=== PATIENT | male | born 1990 | race Caucasian/White ===

== ENCOUNTER → 2022-05-06 | Outpatient (CLI) | payer SELFPAY ==
--- NOTE | 2022-05-06 06:41 | MRI_ITS ---
STUDY: MRI LEFT KNEE REASON FOR EXAM: Anterior left knee pain, instability, twisting injury. TECHNIQUE: Standardized fat and water weighted pulse sequences were obtained in all 3 orthogonal planes. COMPARISON: None. FINDINGS: Normal medial meniscus. Normal hyaline cartilage of the medial femorotibial compartment. Normal medial femoral condyle and tibial plateau. Normal medial collateral ligamentous complex (MCL). Normal distal semimembranosus, gracilis and semitendinosus tendons. Normal lateral meniscus. There is an osteochondral lesion of the lateral femoral condyle (proton-density sagittal image 29; proton-density coronal images 11-13) measuring approximately 0.9 x 0.6 cm (AP x transverse) with cystic change of the fragment (T2 sagittal image 17). There is a bone contusion of the peripheral aspect of the lateral femoral condyle (T2 axial images 17, 18). Normal proximal tibiofibular articulation. Normal lateral collateral (fibular) ligament. Normal popliteus tendon. Normal biceps femoris tendon. Normal anterior cruciate ligament (ACL). Normal posterior cruciate ligament (PCL). There is lateral tilt and lateral subluxation of the patella (T2 axial image 11). There is a shallow femoral trochlea (T2 axial images 15, 16). There is intermediate grade chondromalacia of the inferior median ridge of the patella (T2 axial image 12). There is a mild sprain of the medial patellofemoral ligament (T2 axial image 13). Normal quadriceps tendon. Normal patellar tendon. Normal Hoffa''s fat pad. There is a small joint effusion. There is a small intra-articular body posterior to the root of the posterior horn of the medial meniscus (T2 sagittal image 9) measuring 0.4 cm in length. There is a mildly thickened medial patellar plica (T2 sagittal image 11). The soft tissues are unremarkable. There is a bone contusion of the medial patellar facet (T2 axial image 13). MRI/Lower Ext Joint Only (Routine) IMPRESSION: Transient patellar dislocation with bone contusions of the lateral femoral condyle and medial patella and mild sprain of the medial patellofemoral ligament. Chondromalacia patellae. 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 Small joint effusion. Mildly thickened medial patellar plica. Small posterior intra-articular body. The TT-TG distance is 21 mm. Electronically Signed: Bradly Cameron MD at 7:59 EDT ,
== END | disposition home or self-care (01) ==
PROVIDERS: PCP Family Medicine
DX: S83.005A Unspecified dislocation of left patella, initial encounter (principal); X50.1XXA Overexertion from prolonged static or awkward postures, initial encounter; S83.012A Lateral subluxation of left patella, initial encounter; M22.42 Chondromalacia patellae, left knee; M25.362 Other instability, left knee
CPT/HCPCS: 73721